=== PATIENT | female | born 1975 | race Caucasian/White ===

== ENCOUNTER 2017-03-30 11:36 | Emergency (ER) | payer OTHER ==
--- NOTE | 2017-03-30 11:48 | EDM.PDOC ---
ED HPI GENERAL MEDICAL PROBLEM - General Chief Complaint: ENT Problem Stated Complaint: CHILLS,SORE THROAT Time Seen by Provider: 03/30/17 11:47 Source of Information: Reports: Patient History Limitations: Reports: No Limitations - History of Present Illness INITIAL COMMENTS - FREE TEXT/NARRATIVE: 41-year-old female brought in from [place] [facility]-term with a sore throat 3 days. States occasional pain up in her left ear. Mild nonproductive cough. Fever and chills. She took Motrin last at 0945 hrs. before coming to the ED. Onset: Gradual Onset Date: 03/27/17 Duration: Day(s): Location: Reports: Neck, Chest (Throat cough) Quality: Reports: Ache, Burning Severity: Moderate Improves with: Reports: None Worsens with: Reports: Eating Context: Denies: Activity, Exercise, Lifting, Sick Contact, Trauma, Other Associated Symptoms: Reports: Cough, Fever/Chills, Headaches, Loss of Appetite, Malaise. Denies: No Other Symptoms, Confusion (Mostly nonproductive cough.), Chest Pain, cough w sputum, Diaphoresis, Syncope Treatments [employer]: Reports: NSAIDS (Ibuprofen.) Throat Pain Score (Numeric/FACES): 7 - Related Data Allergies Allergy/AdvReac Type Severity Reaction Status Date / Time wool Allergy Hives Verified 03/30/17 11:44 Home Meds: Home Meds Azithromycin [Zithromax] 250 mg PO DAILY #6 tab 03/30/17 [Rx] Social & Family History - Living Situation & Occupation Occupation: Unemployed (Currently a resident of the [facility].) ED ROS ENT - Review of Systems Review Of Systems: See Below Constitutional: Reports: Fever, Chills, Malaise, Decreased Appetite. Denies: Weight Loss HEENT: Reports: Ear Pain (Occasional pain left ear.), Throat Pain. Denies: Rhinitis, Sinus Problem Respiratory: Reports: Cough (Mostly a nonproductive cough.) Cardiovascular: Reports: No Symptoms Endocrine: Reports: No Symptoms GI/Abdominal: Reports: Decreased Appetite : Reports: No Symptoms Musculoskeletal: Reports: Muscle Pain Skin: Reports: No Symptoms (Generalized myalgia mild) Neurological: Reports: Headache Psychiatric: Reports: No Symptoms Hematologic/Lymphatic: Reports: No Symptoms ED EXAM, ENT - Physical Exam Exam: See Below Exam Limited By: No Limitations General Appearance: Alert, WD/WN, No Apparent Distress, Other (Is afebrile at the time of exam.) Eye Exam: Bilateral Eye: Normal Inspection Ears: Normal TMs Mouth/Throat: Normal Inspection, Normal Gums, Normal Lips, Normal Oropharynx, Pharyngeal Erythema (Diffuse significant pharyngeal erythema.), Throat Pain. No : Throat Swelling, Tongue Swelling, Tonsillar Erythema, Tonsillar Exudates ( No exudate noted.), Tonsillar Swelling, Trismus Head: Atraumatic, Normocephalic Neck: Normal Inspection, Supple, Non-Tender, Full Range of Motion. No: Lymphadenopathy (L), Lymphadenopathy (R) Respiratory/Chest: No Respiratory Distress, Lungs Clear, Normal Breath Sounds, No Accessory Muscle Use, Chest Non-Tender. No: Rhonchi, Wheezing Cardiovascular: Normal Peripheral Pulses, Regular Rate, Rhythm, No Edema, No Murmur Extremities: Normal Inspection, Normal Range of Motion, Non-Tender, No Pedal Edema Neurological: Alert, Oriented, CN II-XII Intact, Normal Cognition, Normal Gait Psychiatric: Normal Affect, Normal Mood Skin: Warm, Dry, Intact, Normal Color, No Rash Course - Vital Signs Last Recorded V/S: Last Vital Signs Temp 36.8 C 03/30/17 11:40 Pulse 94 03/30/17 11:40 Resp 15 03/30/17 11:40 BP 108/73 03/30/17 11:40 Pulse Ox 98 03/30/17 11:40 - Orders/Labs/Meds Orders: Active Orders 24 hr Category Date Time Status STREP SCRN A RAPID W CULT CONF [RM] Stat Lab 03/30/17 11:50 Ordered Meds: Medications Discontinued Medications Generic Name Dose Route Start Last Admin Trade Name Freq PRN Reason Stop Dose Admin Azithromycin 500 mg 03/30/17 11:52 Zithromax PO 03/30/17 11:53 ONETIME ONE - Radiology Interpretation Free Text/Narrative:: 41-year-old female currently incarcerated at the [facility] [place] presents with a three-day history of sore throat generalized mild myalgia headache and anorexia. She is not appear to be that ill with influenza. However since she resides in the institution with a large number of inmates I will have an influenza screen carried out. Rapid strep screen will be carried out as her throat is quite inflamed without evidence of exudate. Patient will be given Zithromax 500 mg by mouth at this time. Departure - Departure Time of Disposition: 12:02 Disposition: Home, Self-Care 01 Condition: Fair Clinical Impression: Pharyngitis Qualifiers: Pharyngitis/tonsillitis etiology: streptococcus Qualified Code(s): J02.0 - Streptococcal pharyngitis - Discharge Information Prescriptions: Azithromycin [Zithromax] 250 mg PO DAILY #6 tab Referrals: Viri Lincoln PA-C [Primary Care Provider] - Forms: ED Department Discharge Additional Instructions: Evaluation in the emergency room today in regards to 3 day history of sore throat fever chills mild headache and diffuse myalgia with a mild nonproductive cough. Examination confirms marked inflammation of the back of your throat compatible with a strep infection. Because you live in an institution influenza screen will be carried out as well. He was started on Zithromax 500 mg in the ED next tablet will be Zithromax 250 mg once daily for the next 6 days with next dose due around noon tomorrow. Continue Motrin 600 mg every 6 hours needed for relief of throat pain and fever and/or chills. Phone the results of the influenza screen and strep screen to the nursing staff at the long-term once the tests become available to me. - My Orders Last 24 Hours: My Active Orders 03/30/17 11:50 STREP SCRN A RAPID W CULT CONF [RM] Stat - Assessment/Plan Last 24 Hours: My Active Orders 03/30/17 11:50 STREP SCRN A RAPID W CULT CONF [RM] Stat
[2017-03-30] MEDS ORDERED: Azithromycin 250 MG Tab PO ONE (11:52)
== END 2017-03-30 12:10 | disposition home or self-care (01) ==
LOC: JD.ED 11:36
DX: J02.0 Streptococcal pharyngitis (principal); Z79.899 Other long term (current) drug therapy; Z91.048 Other nonmedicinal substance allergy status
CPT/HCPCS: 87430; 87804; 99283; A9270